=== PATIENT | female | born 1970 | race Hispanic/Latino ===

== ENCOUNTER → 2021-03-01 | Outpatient (CLI) | payer OTHER ==
[~2021-03-01] MED LIST: AMITIZA24 MCG PO; ASPIRIN81 MG PO; ATENOLOL50 MG PO; CENTRUM SILVER1 EAC4 PO; IRON325 MG PO; LIPITOR20 MG PO; PAROXETINE HCL20 MG PO; PHENTERMINE H37.5 MG PO; TOPAMAX25 MG PO; TRIAMTERENE-HCTZ1 EA PO
== END ==
LOC: DX 16:06 → EDSTATUS 03-05 10:30
PROVIDERS: ATTEND Internal Medicine Gastroenterology
DX: Z01.812 Encounter for preprocedural laboratory examination (principal); Z20.822 Contact with and (suspected) exposure to COVID-19; K21.9 Gastro-esophageal reflux disease without esophagitis; K62.89 Other specified diseases of anus and rectum
CPT/HCPCS: 93005; U0002